=== PATIENT | male | born 1935 ===

== ENCOUNTER 2017-10-16 20:23 | Emergency (ER) | payer BC, MEDICARE ==
[2017-10-16 20:47] VITALS: BP 154/92
[2017-10-16] MEDS ORDERED: Albuterol/Ipratropium NEB.SOL* Albuterol 2.5 MG/Ipratropium 0.5 MG 3 ML INH ONE (21:12)
--- NOTE | 2017-10-16 21:39 | RAD ---
INDICATION: RIGHT anterior chest pain. Cough for 5 days. COMPARISON: No relevant prior exams available on the [facility] for comparison. TECHNIQUE: Dual energy PA and routine lateral views of the chest were obtained. REPORT: Mild airspace consolidation at the RIGHT lung base which may involve the RIGHT lower lobe or RIGHT middle lobe. Negative for pleural effusion or pneumothorax. Cardiomegaly. Unremarkable central pulmonary vasculature. IMPRESSION: Mild RIGHT basilar airspace consolidation suspicious for pneumonia.
[2017-10-16] MEDS ORDERED: Azithromycin TAB* 250 MG PO ONE (21:41)
[2017-10-16] MEDS ORDERED: Albuterol 2.5 MG/3 ML NEB.SOL* (0.083%) INH ONE (21:41)
[2017-10-16] MEDS ORDERED: Albuterol HFA INHALER* 8 gm MDI INH ONE ×2 (21:53→22:02)
--- NOTE | 2017-10-16 21:54 | UC ---
Kyaw Mack Elizabeth, scribed for Nnamdi Monsalve MD on 10/16/17 at 2114 . Respiratory Complaint HPI - HPI Summary HPI Summary: This patient is an 82 year old M presenting to [facility] with a chief complaint of intermittent productive cough and lower right rib cage pain since a few days ago. The patient rates the pain 4/10 in severity. Symptoms aggravated by nothing. Symptoms alleviated by nothing. Patient reports wheezing and post- nasal drip. Patient has hx of A-fib and takes Xarelto. - History of Current Complaint Chief Complaint: UCGeneralIllness Stated Complaint: COUGH, CHEST CONGESTION Time Seen by Provider: 10/16/17 21:06 Hx Obtained From: Patient Onset/Duration: Gradual Onset, Still Present Timing: Intermittent Episodes Severity Initially: Mild Severity Currently: Mild Pain Intensity: 4 Pain Scale Used: 0-10 Numeric Character: Cough: Nonproductive Aggravating Factors: Nothing Alleviating Factors: Nothing Associated Signs And Symptoms: Positive: Wheezing, Nasal Congestion - Allergies/Home Medications Allergies/Adverse Reactions: Allergies Allergy/AdvReac Type Severity Reaction Status Date / Time No Known Allergies Allergy Verified 10/16/17 20:47 Home Medications: Home Medications Hydrochlorothiazide TAB* [Hydrodiuril TAB*] 12.5 mg PO DAILY 10/16/17 [History Confirmed 10/16/17] Lisinopril TAB* [Prinivil TAB 5 MG*] 5 mg PO DAILY 10/16/17 [History Confirmed 10/16/17] Rivaroxaban TAB(*) [Xarelto 10 mg (*)] 10 mg PO DAILY 10/16/17 [History Confirmed 10/16/17] PMH/Surg Hx/FS Hx/Imm Hx Cardiovascular History: Atrial Fibrillation - Surgical History Surgical History: Yes Surgery Procedure, Year, and Place: neuroma removal, two wrist surgeries, tonsils, knee surgery - Social History Alcohol Use: Weekly Substance Use Type: None Smoking Status (MU): Former Smoker Review of Systems Constitutional: Negative - NEGATIVE FEVER ENT: Nasal Discharge - post-nasal drip Respiratory: Shortness Of Breath - wheezing, Cough - productive Gastrointestinal: Negative - NEGATIVE VOMITING All Other Systems Reviewed And Are Negative: Yes Physical Exam - Summary Physical Exam Summary: VITAL SIGNS: Reviewed. GENERAL: Patient is a well-developed and nourished MALE who is lying comfortable in the stretcher. Patient is not in any acute respiratory distress. HEAD AND FACE: Normocephalic EYES: PERRLA, EOMI x 2. EARS: Hearing grossly intact. MOUTH: Oropharynx within normal limits. NECK: Supple, trachea is midline, no adenopathy, no JVD, no carotid bruit. CHEST: Symmetric, no tenderness at palpation LUNGS: Wheezing. Crackles in both bases of the lungs. CVS: Regular rate and rhythm, S1 and S2 present, no murmurs or gallops appreciated. ABDOMEN: Soft, non-tender. Bowel sounds are normal. No abdominal abnormal pulsations. EXTREMITIES: Full ROM in all major joints, no edema, no cyanosis or clubbing. NEURO: Alert and oriented x 3. No acute neurological deficits. Speech is normal and follows commands. SKIN: Dry and warm Triage Information Reviewed: Yes Vital Signs: Initial Vital Signs Temp 98.6 F 10/16/17 20:39 Pulse 106 10/16/17 20:39 Resp 16 10/16/17 20:39 BP 154/92 10/16/17 20:39 Pulse Ox 97 10/16/17 20:39 Vital Signs Reviewed: Yes UC Diagnostic Evaluation - Laboratory O2 Sat by Pulse Oximetry: 97 - Radiology Xray Interpretation: Positive (See Comments) - Impression: Mild right basilar air space consolidation suspicious for pneumonia. Dr. Monsalve has reviewed this report. Radiology Interpretation Completed By: Radiologist Respiratory Course/Dx - Course Course Of Treatment: Patient here with the wheezing and intermittent productive and dry cough. He was given DuoNeb and his symptoms improved. I believe the patient has pneumonia hich induced wheezing. However he doesn't have any fevers , he doesn't have any chills, he has no other complaints. He was given azithromycin for the Pneumonia and albuterol for wheezing. He will be discharged home with follow-up with primary care physician. He was instructed to return to the urgent care if symptoms worsens. Patient understands and agrees. All his questions were answered and he has no other concerns. - Differential Dx/Diagnosis Provider Diagnoses: Pnuemonia. Wheezing Discharge - Sign-Out/Discharge Documenting (check all that apply): Discharge/Admit/Transfer - Discharge Plan Condition: Stable Disposition: HOME Discharge Disposition Comment: discharge home Prescriptions: Azithromycin TAB* [Zithromax TAB (Z-IRAIDA) 250 mg #6 tabs] 250 mg PO DAILY #4 tab Patient Education Materials: Pneumonia (ED), Wheezing (ED) Referrals: [facility] [Outside] No Primary Care Phys,NOPCP [Primary Care Provider] - - Billing Disposition and Condition Condition: STABLE Disposition: Home The documentation as recorded by the Kyaw hanna Elizabeth accurately reflects the service I personally performed and the decisions made by me, Nnamdi Monsalve MD.
== END 2017-10-16 22:10 | disposition home or self-care (01) ==
LOC: UCEAST 20:23
DX: J18.9 Pneumonia, unspecified organism (principal); R06.2 Wheezing; I48.91 Unspecified atrial fibrillation; Z79.01 Long term (current) use of anticoagulants; Z87.891 Personal history of nicotine dependence
CPT/HCPCS: 71046; 99203; A9270-GY; G0463

== ENCOUNTER 2018-09-16 20:29 | Emergency (ER) | payer MEDICARE, OTHER ==
[2018-09-16 20:42] VITALS: BP 142/81
[2018-09-16] MEDS ORDERED: Albuterol HFA INHALER* 8 gm MDI INH ONE (21:07)
[2018-09-16] MEDS ORDERED: Azithromycin TAB* 250 MG PO ONE (21:07)
--- NOTE | 2018-09-16 21:10 | UC ---
Respiratory Complaint HPI - HPI Summary HPI Summary: Cough bringing up yellow sputum occasional wheeze, no swelling not SOB, no CP, no BEST, No orthopnea - History of Current Complaint Chief Complaint: UCRespiratory Stated Complaint: COUGH Time Seen by Provider: 09/16/18 20:36 Hx Obtained From: Patient, Family/School Crossing Guard Onset/Duration: Sudden Onset, Lasting Days - 1, Still Present Timing: Constant Pain Intensity: 0 Pain Scale Used: 0-10 Numeric Character: Cough: Productive, Sputum Description: - yellow Aggravating Factors: Nothing Alleviating Factors: Nothing Associated Signs And Symptoms: Negative: Dyspnea, Fever, Dizziness, Calf Pain, Calf Swelling, Edema, URI - Allergies/Home Medications Allergies/Adverse Reactions: Allergies Allergy/AdvReac Type Severity Reaction Status Date / Time No Known Allergies Allergy Verified 09/16/18 20:42 PMH/Surg Hx/FS Hx/Imm Hx Previously Healthy: No Cardiovascular History: Congestive Heart Failure - Surgical History Surgical History: Yes Surgery Procedure, Year, and Place: neuroma removal, two wrist surgeries, tonsils, knee surgery. recently diagnosed with congestive heart failure - Family History Known Family History: Positive: None - Social History Occupation: Retired Lives: With Family Alcohol Use: Weekly Substance Use Type: None Smoking Status (MU): Former Smoker Have You Smoked in the Last Year: No When Did the Patient Quit Smoking/Using Tobacco: 60 years ago Review of Systems All Other Systems Reviewed And Are Negative: Yes Constitutional: Positive: Negative Skin: Positive: Negative Eyes: Positive: Negative ENT: Positive: Negative Respiratory: Positive: Cough Cardiovascular: Positive: Negative Gastrointestinal: Positive: Negative Genitourinary: Positive: Negative Motor: Positive: Negative Neurovascular: Positive: Negative Musculoskeletal: Positive: Negative Neurological: Positive: Negative Psychological: Positive: Negative Is Patient Immunocompromised?: No Physical Exam Triage Information Reviewed: Yes Appearance: Well-Appearing, No Pain Distress, Well-Nourished Vital Signs: Initial Vital Signs Temp 97 F 09/16/18 20:36 Pulse 69 09/16/18 20:36 Resp 18 09/16/18 20:36 BP 142/81 09/16/18 20:36 Pulse Ox 96 09/16/18 20:36 Vital Signs Reviewed: Yes Eye Exam: Normal Eyes: Positive: Conjunctiva Clear ENT Exam: Normal ENT: Positive: Normal ENT inspection, Hearing grossly normal. Negative: Trismus , Muffled voice, Hoarse voice Neck exam: Normal Neck: Positive: Supple, Nontender Respiratory Exam: Normal Respiratory: Positive: Chest non-tender, Lungs clear, Normal breath sounds, No respiratory distress, No accessory muscle use Cardiovascular Exam: Normal Cardiovascular: Positive: RRR, No Murmur, Pulses Normal, Brisk Capillary Refill Musculoskeletal Exam: Normal Musculoskeletal: Positive: Strength Intact, ROM Intact, No Edema Neurological Exam: Normal Neurological: Positive: Alert, Muscle Tone Normal Psychological Exam: Normal Skin Exam: Normal Respiratory Course/Dx - Course Course Of Treatment: albuterol, zithromax, tc medication fr cough, follow at ED or [facility] if sx do not resolve or worsen - Differential Dx/Diagnosis Provider Diagnosis: Bronchitis Discharge - Sign-Out/Discharge Documenting (check all that apply): Patient Departure All imaging exams completed and their final reports reviewed: No Studies - Discharge Plan Condition: Stable Disposition: HOME Prescriptions: Azithromycin TAB* [Zithromax TAB (Z-IRAIDA) 250 mg #6 tabs] 250 mg PO DAILY #4 tab Patient Education Materials: Acute Bronchitis (ED), How to Use a Metered-Dose Inhaler and a Spacer (ED) Referrals: [facility] [Outside] - If Needed Additional Instructions: Follow with you primary care doctor, [facility] or to the emergency department for any worsening of symptoms or if symptoms fail to resolve - Billing Disposition and Condition Condition: STABLE Disposition: Home - Attestation Statements Provider Attestation: I was available for consult. This patient was seen by the JACEY. The patient was not presented to , seen by or examined by mi -Reggie Gleason MD
== END 2018-09-16 21:25 | disposition home or self-care (01) ==
LOC: UCEAST 20:29
DX: J40 Bronchitis, not specified as acute or chronic (principal); Z87.891 Personal history of nicotine dependence
CPT/HCPCS: 99212; A9270-GY; G0463